=== PATIENT | male | born 1940 | race Caucasian/White ===

== ENCOUNTER → 2017-12-30 13:57 | Outpatient (CLI) | payer MEDICARE, OTHER, SELFPAY ==
--- NOTE | 2018-01-01 16:22 | PM.PFT.1 ---
Pulmonary Function Test Referral & Results Date Patient Seen: 12/30/17 Requesting provider: Hilario Gomes Results: The spirometry demonstrates an FVC of 5.4 L which is 138% of predicted. The FEV1 was measured at 3.32 L which is 117% of predicted. The FEV1/FVC ratio was 61 which is 84% of predicted. Following the administration of bronchodilator there was no appreciable change. Lung volumes show an SVC of 6.36 L which is 148% of predicted. The diffusing capacity was measured at 19.80 which is 63% of predicted. No hemoglobin value was provided, so no correction for potential anemia could be made, if appropriate. The maximum voluntary ventilation was normal. Interpretation: This study demonstrates normal spirometry however there was a modest reduction in diffusing capacity suggesting some element of disease at the capillary alveolar level. Clinical correlation suggested
== END ==
PROVIDERS: PCP Physician Assistant Medical; Visit Provider Internal Medicine Cardiovascular Disease
DX: Z79.899 Other long term (current) drug therapy (principal)
CPT/HCPCS: 94010; 94060; 94729

== ENCOUNTER → 2019-04-05 10:31 | Outpatient (CLI) | payer MEDICARE, OTHER, SELFPAY ==
[2019-04-05 12:30] LABS: Thyroid Stimulating Hormone 2.17 uIU/mL (0.47-4.68)
== END ==
PROVIDERS: PCP Physician Assistant Medical; Visit Provider Internal Medicine Cardiovascular Disease
DX: Z79.899 Other long term (current) drug therapy (principal)
CPT/HCPCS: 36415; 84443

== ENCOUNTER → 2019-08-18 11:37 | Outpatient (CLI) | payer MEDICARE, OTHER, SELFPAY ==
--- NOTE | 2019-08-18 | DI.RAD.S_ITS ---
PROCEDURE: XR CHEST 2V INDICATIONS: On Amiodarone TECHNIQUE: 2 views of the chest were acquired. COMPARISON: None. FINDINGS: Surgical changes and devices: Stable over time, cardiac pacemaking device and dual chamber leads appear in normal position. Lungs and pleura: Lungs are abnormal with large lung volumes and flattening of the hemidiaphragms on the lateral view, consistent with COPD. No pleural effusions or pneumothorax. Mediastinum: Mediastinal contours are normal. Heart size is normal. Bones and chest wall: No suspicious bony abnormalities. Soft tissues appear unremarkable. IMPRESSION: Large lung volumes, COPD is presumed. Cardiac pacemaking device and leads appear normal. No pulmonary fibrotic change is found. Dictated by: Shakeel Zapata M.D. on 08/18/2019 at 12:31 Approved by: Shakeel Zapata M.D. on 08/18/2019 at 12:32
[2019-08-18 12:43] LABS: Alanine Aminotransferase 16 IU/L (<50); Albumin 4.3 g/dL (3.5-5.0); Albumin Globulin Ratio 1.3 (1.0-2.8); Alkaline Phosphatase 84 U/L (38-126); Aspartate Aminotransferase 30 IU/L (17-59); BUN Creatinine Ratio 10.6 (6-22); Bilirubin Total 0.7 mg/dL (0.2-1.3); Blood Urea Nitrogen 17 mg/dL (9-20); Calcium 9.2 mg/dL (8.4-10.2); Carbon Dioxide 26 mmol/L (22-32); Chloride 102 mmol/L (98-107); Estimated Glomerular Filt Rate 41.9 mL/min (>60); Globulin 3.2 g/dL (1.7-4.1); Glucose 93 mg/dL (80-110); HEMOLYSIS < 15 (0-50); Potassium 4.3 mmol/L (3.4-5.1); Sodium 137 mmol/L (137-145); Total Protein 7.5 g/dL (6.3-8.2)
[2019-08-18 13:45] LABS: Thyroid Stimulating Hormone 2.35 uIU/mL (0.47-4.68)
== END ==
PROVIDERS: PCP Nurse Practitioner Gerontology; Referring Provider Internal Medicine Cardiovascular Disease; Visit Provider Internal Medicine Cardiovascular Disease
DX: Z79.899 Other long term (current) drug therapy (principal)
CPT/HCPCS: 36415; 71046; 80053; 84443